=== PATIENT | female | born 1950 | race Caucasian/White ===

== ENCOUNTER 2018-12-18 16:23 | Emergency (ER) | payer OTHER ==
[~2018-12-18] VITALS: Ht 152.4 cm; Wt 90.7 kg
[2018-12-18] MEDS ORDERED: ANORO ELLIPTA1 EACH (16:50)
[2018-12-18] MEDS ORDERED: PROAIR HFA8.5 GM (16:50)
[2018-12-19] MEDS ORDERED: SYMBICORT 16010.2 GM IH (01:58)
[2018-12-19] MEDS ORDERED: MEDROLPACK PO (01:58)
== END 2018-12-19 02:21 | disposition home or self-care (01) ==
LOC: ER 16:23
DX: J44.1 Chronic obstructive pulmonary disease with (acute) exacerbation (principal); J11.1 Influenza due to unidentified influenza virus with other respiratory manifestations